=== PATIENT | female | born 1990 | race Caucasian/White ===

== ENCOUNTER 2016-10-30 12:59 | Observation (INO) ==
[2016-10-30] MEDS ORDERED: SODIUM CHLORIDE 0.9% 500 ML IV STA (13:35)
--- NOTE | 2016-10-30 13:55 | CT Report ---
Referring physician: Candido Dewey Exam: CT brain without contrast Date: October 30, 2016 Comparison: None Reason: Syncope The patient is an Emergency Department patient on October 30, 2016. Technique: Axial images of the head were obtained without the use of contrast. Total DLP was 1012.1 mGy*cm. Findings: No hydrocephalus or midline shift is present. There is no evidence of an acute infarction, recent intracranial hemorrhage or abnormal mass effect. The osseous structures appear intact. The mastoid air cells and visualized paranasal sinuses are clear. Impression: No acute intracranial abnormality is identified. The CT exam was performed using one or more of the following dose reduction techniques: Automated exposure control and adjustment of the mA and/or kV according to patient size. PROCEDURE INTERPRETED AT [facility] DEPARTMENT OF RADIOLOGY Final Report Signed by: Dr. Su Santiago
--- NOTE | 2016-10-30 14:02 | XRay Report ---
XR chest 2V Indication: SOB Comparison: None Technique: Frontal and lateral views of the chest. Findings: Heart size appears within normal limits. No focal consolidation, pleural effusion, or pneumothorax. Visualized osseous and surrounding soft tissue structures demonstrate no acute abnormality. Minimal dextroconvex curvature of the thoracic spine. IMPRESSION: No acute cardiopulmonary process demonstrated. PROCEDURE INTERPRETED AT [facility] DEPARTMENT OF RADIOLOGY Final Report Signed by: Dr Patric Sanches
[2016-10-30 14:14] LABS: Basophils % 0.5 % (0.0-0.8); Eosinophils # 0.4 10*3/uL (0.0-0.87); Eosinophils % 7.4 % (0.00-10.9); Hematocrit 37.3 VOL% (35.7-47.0); Hemoglobin 12.9 GM/DL (12.0-16.0); Immature Granulocytes % 0.2 %; Immature Granulocytes Absolute 0.01 #; Lymphocytes # 1.6 10*3/uL (1.4-4.0); Lymphocytes % 28.2 % (21.3-54.2); Mean Corpuscular HGB Conc 34.6 GM/DL (32-36); Mean Corpuscular Hemoglobin 33 PG (27-34); Mean Platelet Volume 9.9 FL (9.6-12.0); Monocytes # 0.2 10*3/uL (0.11-0.8); Monocytes % 4.1 % (1.7-12.7); Neutrophils # 3.3 10*3/uL (1.4-7.4); Neutrophils % 59.6 % (38.7-73.9); Platelet Count 217 T/CUMM (130-400); Red Blood Count 3.97 MC/CUMM (3.8-5.5); Red Cell Distribution Width 12.6 % (9.3-17.3); White Blood Count 5.6 T/CUMM (4-12)
[2016-10-30] MEDS ORDERED: ONDANSETRON 4 MG/2 ML VIAL ONE (14:16)
[2016-10-30] MEDS ORDERED: ONDANSETRON 4 MG/2 ML VIAL IV STA (14:17)
[2016-10-30 14:46] LABS: Apearance,Urine CLEAR (Clear); Bacteria,Urine Occasional /HPF (Few); Bilirubin,Urine Negative (Negative); Blood, Urine Small mg/dL (Negative); Glucose,Urine (UA) Negative (Negative); Ketones,Urine Negative (Negative); Nitrite,Urine Negative (Negative); Protein,Urine Negative; RBC,Urine <1 /HPF (0-4); Squamous Epithelial Cell,Urine Occasional /HPF (0-10); Urine Color Straw (Yellow); Urine Specific Gravity 1.003 (1.001-1.035); Urine Urobilinogen < 2.0 EU/DL (0.2-1.0); WBC,Urine <1 /HPF (0-6)
[2016-10-30 14:55] LABS: Alanine Aminotransferase 87 U/L (13-56); Albumin 3.9 G/DL (3.4-5.0); Alkaline Phosphatase 96 U/L (45-117); Aspartate Amino Transferase 58 U/L (0-37); Blood Urea Nitrogen 6 MG/DL (7-18); Calcium 8.8 MG/DL (8.5-10.1); Glucose 94 MG/DL (74-106); Magnesium 2.4 MG/DL (1.8-2.4); Potassium 4.2 MMOL/L (3.5-5.1); Sodium 143 MMOL/L (136-145); Total Protein 6.6 G/DL (6.4-8.3); Troponin I Only < 0.015 NG/ML (0.00-0.045)
--- NOTE | 2016-10-30 15:16 | Emergency Department Note ---
Maria A Gutierrez Hilary, am scribing for, and in the presence of, Candido Dewey MD 13:37. Maco Gutierrez Phillip K, MD, personally performed the services described in this documentation, ascribed by Pebbles Saha in my presence, and it is both accurate and complete 516 . Arrival - Arrival Chief Complaint: Syncope Stated Complaint: passing out ED Nursing Triage Note: mother states pt passed out 3 times last night. pt has passed out two times today. +headache Mode of Arrival: Wheelchair Limitations: No Limitations Source: Patient, RN Notes Reviewed - History of Present Illness HPI Narrative: Pt is a 26 y/o female presenting to the ED with c/o of syncope which onset last night. Pts states she had 3 episodes of syncope last night and 2 more today. Pt states she has had these same symptoms but not for 6 years. Pt confirms headache on the top of her head bilaterally for 3 days , nausea, lightheadedness , syncope x 5, fever onset 3 days ago, and hoarse voice started 3 days ago but denies knots on her head. Pt has a PMHx of neurocordiogenic vasodepressor syncope. No other complaints or problems stated in the ED. Pts mother is in the room and states 4 days ago, while at work, she lost motor function and her "mind blanked". She said that she was not able to type peoples names or understand what people are saying. Onset (ago): day(s) Date of Last Menstrual Period: iud Allergies/Adverse Reactions: Allergies Allergy/AdvReac Type Severity Reaction Status Date / Time No Known Allergies Allergy Unverified 10/30/16 13:07 Home Medications: Home Medications Medication Instructions Recorded Confirmed Type FLUoxetine [PROzac] 20 mg PO QAM 10/30/16 10/30/16 History Multivitamin [Chewable-Arsenio] 1 each PO DAILY 10/30/16 10/30/16 History Review of System - Review of System 12 point system: reviewed and no additional remarkable complaints except as stated - Review of System Constitutional: Absent: fever Respiratory: Present: cough Cardiovascular: Present: syncope (syncope x 5) Gastrointestinal: Present: nausea. Absent: vomiting Neurological: Present: headache, confusion Medical,Surgical,& Family Hx - Medical History Other: History of: Miscellaneous Medical Problems (neurocordiogenic vasodepressor syncope) - Social History Smoking Status: Smoker, status unknown Frequency of Alcohol Use: None Type of Drug Use: None Exam Vital Signs: Vital Signs Temperature 98.1 F 10/30/16 13:10 Pulse Rate 92 H 10/30/16 13:10 Respiratory Rate 18 10/30/16 13:10 Blood Pressure 124/74 10/30/16 13:10 O2 Sat by Pulse Oximetry 96 10/30/16 13:03 - General General appearance: alert, in no apparent distress - Head Head exam: Present: atraumatic, normocephalic - Eye Eye exam: Present: normal appearance, PERRL, EOMI - ENT ENT exam: Present: mucous membranes moist, TM's normal bilaterally. Absent: mucous membranes dry - Neck Neck exam: Present: full ROM, trachea midline. Absent: tenderness - Chest Chest inspection: Present: symmetric chest wall rise. Absent: tenderness - Respiratory Respiratory exam: Present: normal lung sounds bilaterally. Absent: respiratory distress - Cardiovascular Cardiovascular exam: Present: regular rate, normal rhythm, normal heart sounds. Absent: murmur, rubs, gallop - Abdominal Exam Abdominal exam: Present: soft, normal bowel sounds. Absent: distention, tenderness - Extremities Exam Extremities exam: Present: full ROM. Absent: tenderness - Back Exam Back exam: Present: full ROM. Absent: tenderness - Neurological Exam Neurological exam: Present: alert, oriented X3, CN II-XII intact. Absent: motor sensory deficit - Psychiatric Psychiatric exam: Present: normal affect, normal mood - Skin Skin exam: Present: warm, dry, intact, normal color. Absent: rash Course Course Narrative: Patient discussed with the hospitalist. Results - Labs CBC & BMP: 10/30/16 13:58 10/30/16 13:58 Lab Results: I have reviewed the patients labs Labs: Laboratory Tests 10/30/16 10/30/16 13:58 13:58 Sodium 143 Potassium 4.2 Chloride 107 Carbon Dioxide 28 BUN 6 L AST 58 H ALT 87 H Urine Color Straw Urine Appearance Clear Urine pH 9.0 H Urine Urobilinogen < 2.0 H - EKG EKG results: interpreted by ERMD, WNL, sinus rhythm - Diagnostic Findings Procedure: Chest x-ray: report reviewed by me (No acute abnormality), CT: report reviewed by me (CT head scan shows no acute intracranial abnormality) Disposition Clinical Impression: Syncope Case discussed with: patient, patient's family Disposition: Still a Patient Condition: Guarded Additional Instructions: Admit to the hospitalist for further workup and monitoring.
--- NOTE | 2016-10-30 15:32 | EKG Report ---
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
--- NOTE | 2016-10-30 17:03 | Hospitalist History & Physical ---
Assessment and Plan (1) History of migraine Status: Acute Current Visit: Yes (2) Headache Status: Acute Current Visit: Yes (3) Syncope Status: Acute Assessment and plan: Our plan for this patient will be admitting her to a monitored bed. Will consult neurology. I am going to order an EEG on the patient. Her CT scan was negative. I will defer to neurology if they think an MRI of her brain is needed. She is only on Prozac at home we will continue that medication. I wonder whether this is a stress reaction. Patient has 3 young children and her had a recent heart attack. She had a history of migraines. She does talk about her head hurting with some of the spells. Going to check a 2D echo on this patient just to be complete. Reevaluate patient in the morning and adjust plans appropriate. Current Visit: Yes History of Present Illness Chief complaint: Syncope and headache History of present illness: Ms. Burrell is a 26 year old female with past medical history significant for anxiety and depression who is her normal state of health until this past weekend. Patient reports that she had a "spell". 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 She had a bad headache and she would get kind of dizzy. She says while she was there interesting like her mind went blank. Patient reports that Saturday she developed a hoarse voice but was still able to work. She had the dizziness again. She tried some meclizine it did not change her symptoms. She felt like the top of her head was going to blow off. She checked her blood pressure and glucose and both were normal values. Patient went home and she was found passed out completely out under the garage. Patient was woke up by her she felt weird she did not seek medical attention there was no loss of bowel or bladder function. She passed out 2 more times that evening. She was passing out while in the bed. Last night patient had an additional passing out spell when she got up to go the bathroom. She felt sick she felt dizzy again and passed out. When she woke up she could tell that she had bit her tongue and it she felt like her feet and fingers were numb. Her then called her parents and her parents urged her to come up to the hospital for further evaluation. Patient was seen in the emergency room and I was consulted to admit her Home Medications Medication Instructions Recorded Confirmed Type FLUoxetine [PROzac] 20 mg PO QAM 10/30/16 10/30/16 History Multivitamin [Chewable-Arsenio] 1 each PO DAILY 10/30/16 10/30/16 History Allergies Allergy/AdvReac Type Severity Reaction Status Date / Time No Known Allergies Allergy Unverified 10/30/16 13:07 Medical,Surgical,& Family Hx - Medical History Neurology: History of: Migraine Other: History of: Miscellaneous Medical Problems (neurocordiogenic vasodepressor syncope) - Surgical History HEENT Surgeries: Surgical HX of: Tonsilectomy & Adenoidectomy Reproductive Surgeries: Surgical HX of;: Section - Family History Family History: Reports;: Family Cancer, Family Diabetes, Family Heart Disease - Social History Smoking Status: Light tobacco smoker Frequency of Alcohol Use: None Type of Drug Use: None 12 point system: reviewed and no additional remarkable complaints except as stated Exam - Constitutional Vitals: Period Temp Pulse Resp BP Sys/De Leon Pulse Ox Last 24 Hr 98.1 F-98.1 F 77-92 18-18 124-134/74-86 96 General appearance: normal weight - Head Head exam: Present: normal inspection - Eye Eye exam: Present: EOMI, nystagmus - ENT ENT exam: Present: normal exam - Neck Neck exam: Present: normal inspection - Respiratory Respiratory exam: Present: clear to auscultation bilaterally - Cardiovascular Cardiovascular exam: Present: regular rate and rhythm - GI/Abdominal GI/Abdominal exam: Present: normal bowel sounds - Extremities Exam Extremities exam: Present: normal inspection - Back Exam Back exam: Present: normal inspection - Neurological Exam Neurological exam: Present: alert, oriented X3 - Psychiatric Psychiatric exam: Present: normal affect, normal mood - Skin Skin exam: Present: normal color Results - Labs CBC & BMP: 10/30/16 13:58 10/30/16 13:58
[2016-10-31 06:27] LABS: Basophils % 0.7 % (0.0-0.8); Eosinophils # 0.4 10*3/uL (0.0-0.87); Eosinophils % 7.8 % (0.00-10.9); Hemoglobin 11.6 GM/DL (12.0-16.0); Immature Granulocytes % 0.2 %; Immature Granulocytes Absolute 0.01 #; Lymphocytes # 2.4 10*3/uL (1.4-4.0); Lymphocytes % 44.7 % (21.3-54.2); Mean Corpuscular HGB Conc 33.1 GM/DL (32-36); Mean Corpuscular Hemoglobin 32 PG (27-34); Mean Corpuscular Volume 95.1 FL (87-102); Mean Platelet Volume 10.4 FL (9.6-12.0); Monocytes # 0.3 10*3/uL (0.11-0.8); Monocytes % 5.2 % (1.7-12.7); Neutrophils # 2.2 10*3/uL (1.4-7.4); Neutrophils % 41.4 % (38.7-73.9); Platelet Count 209 T/CUMM (130-400); Red Blood Count 3.68 MC/CUMM (3.8-5.5); Red Cell Distribution Width 12.9 % (9.3-17.3); White Blood Count 5.4 T/CUMM (4-12)
[2016-10-31 07:00] LABS: Albumin 3.3 G/DL (3.4-5.0); Bilirubin,Total 0.4 MG/DL (0.2-1.0); Calcium 8.4 MG/DL (8.5-10.1); Magnesium 2.3 MG/DL (1.8-2.4); Osmolality,Calculated 282.8 MOS/KG (273-304); Potassium 4.4 MMOL/L (3.5-5.1); Total Protein 5.8 G/DL (6.4-8.3)
[2016-10-31] MEDS: FLUoxetine 20 MG CAPSULE PO SCH (08:54)
[2016-10-31] MEDS: PANTOPRAZOLE 40 MG TABLET PO SCH (08:54)
[2016-10-31] MEDS: MULTIVITAMIN (CENTRUM) TABLET PO SCH (08:55)
[2016-10-31] MEDS ORDERED: LORazepam 1 MG TABLET PO ONE (10:12)
[2016-10-31] MEDS: ACETAMINOPHEN 325 MG TABLET PO PRN ×2 (10:21→17:07)
--- NOTE | 2016-10-31 15:48 | Neurology Consult Note ---
History of Present Illness History of present illness: Ms. Burrell is a 26 year RH white lady with past medical history significant for anxiety and depression who was her normal state of health until this past weekend. Patient reports that she had a "spell". 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 She had a bad headache and she would get kind of dizzy. States that her mind went blank. Patient reports that Saturday she developed a hoarse voice but was still able to work. She had the dizziness again. She tried some meclizine it did not change her symptoms. She felt like the top of her head was going to blow off. She checked her blood pressure and glucose and both were normal values. Patient went home and she was found passed out completely out under the garage. Patient was woke up by her she felt weird she did not seek medical attention there was no loss of bowel or bladder function. She passed out 2 more times that evening. She was passing out while in the bed. Last night patient had an additional passing out spell when she got up to go the bathroom. She felt sick she felt dizzy again and passed out. When she woke up she could tell that she had slightly bruised her tongue and she felt like her feet and fingers were numb. Her then called her parents and her parents urged her to come up to the hospital for further evaluation. CT of the head is negative. Patient has been under a lot of stress lately at home as well as at work. Home Medications Medication Instructions Recorded Confirmed Type FLUoxetine [PROzac] 20 mg PO QAM 10/30/16 10/30/16 History Multivitamin [Chewable-Arsenio] 1 each PO DAILY 10/30/16 10/30/16 History Allergies Allergy/AdvReac Type Severity Reaction Status Date / Time No Known Allergies Allergy Unverified 10/30/16 13:07 12 point system: reviewed and no additional remarkable complaints except as stated Medical,Surgical,& Family Hx - Medical History Psychological: History of: Anxiety Disorders Neurology: History of: Migraine Other: History of: Miscellaneous Medical Problems (neurocordiogenic vasodepressor syncope) - Surgical History Neurologic Surgeries: Patient denies: Neurologic Surgery HEENT Surgeries: Surgical HX of: Tonsilectomy & Adenoidectomy Reproductive Surgeries: Surgical HX of;: Section - Family History Family History: Reports;: Family Cancer, Family Diabetes, Family Heart Disease - Social History Smoking Status: Light tobacco smoker Frequency of Alcohol Use: None Type of Drug Use: None Exam - Constitutional Vitals: Period Temp Pulse Resp BP Sys/De Leon Pulse Ox Last 24 Hr 97.1 F-98.8 F 59-80 16-20 97-120/56-67 93-96 Exam: GENERAL: Patient is in no acute distress. NECK: Neck is supple. There is no JVD. No carotid bruits present. No thyroid masses. CVS: First and second heart sounds are normal. There is no S3 present. Regular rate and rhythm. RESPIRATORY: Lungs are clear to auscultation without any rales or rhonchi. ABDOMEN: Soft and non-tender. Bowel sounds are present. There is no hepatosplenomegaly. EXT: There is no palpable edema. Peripheral pulses are present. Skin: No rashes Central Nervous system: General: Alert, awake and Oriented x 3 Speech: Fluent Comprehension: Intact and normal Facial expressions: Normal Cranial Nerves: CN1/Olfactory: Normal CN II/ Optic: Normal, Visual Cantu unreliable CN III, and : GABY & EOMI CN V: Normal & intact CN VII: face is symmetric CNVIII: Normal CN XI/X/XI/XII: Intact and Normal Motor: Bulk and Tone is normal. Strength in the right 5/5 Strength in the left 5/5 Sensory: Grossly intact for all the modalities of PP, LT and temp sense Reflexes: 1+ and symmetrical Cerebellar function: Normal finger to nose and heel to brown testing. Toes: Equivocal Gait: Normal heel to heel and toe to toe and tandem walk. Results - Labs CBC & BMP: 10/31/16 05:21 10/31/16 05:21 Assessment and Plan (1) Chronic migraine Status: Acute Assessment and plan: Topamax 25 mg p.o. daily Fioricet 1 tablet every 4 to every 6 as needed Current Visit: Yes (2) Syncope Status: Acute Assessment and plan: MRI of the brain with and without contrast EEG Thank you for the count Current Visit: Yes
--- NOTE | 2016-10-31 16:18 | Hospitalist Progress Note ---
Assessment and Plan (1) History of migraine Status: Chronic Assessment and plan: Noted patient is a started on Topamax and Fioricet Current Visit: Yes (2) Syncope Status: Acute Assessment and plan: Syncope of 4 unknown etiology. Being evaluated by neurology. I cannot rule out any seizure or this could be a migraine related . EEG for performed today result pending MRI of the brain with and without contrast planned by Dr. West Current Visit: Yes (3) Anxiety Status: Acute Current Visit: Yes Hospitalist: Subjective Interval history: Ms. Burrell is a 26 year old female with past medical history significant for anxiety and depression. 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 She reports that she having spells for last few days. Over the weekend on Saturday she will get the pharmacy and felt funny. She gave the patient empty bottle at the pharmacy store with no label. Earlier she could not even type patient's name on the computer and order fill prescription. Patient started having headache next day with some nausea. Saturday morning she passed out in her garage and the felt lightheaded she does not remember what happened. Y numbness in her hands and feet and felt her head heavy and dizzy morning she had another episode when she felt while she using bathroom. She had no bowel incontinence or tongue biting . She was seen in the ER and had CT scan which was negative for acute intracranial abnormalities she was admitted for further evaluation. She had episode of anxiety attack here in the hospital this morning she was given a milligram of 1 mg of Ativan. She says she does have a history of anxiety and very occasionally she has to take Ativan she has not taken this for some weeks now before today. She has no history of seizure but her mother told that she had history of what was told is near syncope when she was at age 6. Exam - Constitutional Vitals: Period Temp Pulse Resp BP Sys/De Leon Pulse Ox Last 24 Hr 97.1 F-98.8 F 59-80 16-20 97-120/56-67 93-96 General appearance: no acute distress, over weight - Eye Eye exam: Present: EOMI. Absent: conjunctival injection Pupils: Present: GABY, normal accommodation - Respiratory Respiratory exam: Present: clear to auscultation bilaterally. Absent: rales, rhonchi - Cardiovascular Cardiovascular exam: Present: regular rate and rhythm. Absent: tachycardia - GI/Abdominal GI/Abdominal exam: Present: normal bowel sounds, soft. Absent: distended, tenderness - Extremities Exam Extremities exam: Present: normal inspection. Absent: edema - Neurological Exam Neurological exam: Present: alert, oriented X3 Results - Labs CBC & BMP: 10/31/16 05:21 10/31/16 05:21 Lab Results: I have reviewed the past 24 hour labs
--- NOTE | 2016-10-31 19:32 | ECHO Report ---
Ade Burrell Exam Date: 10/31/2016 10:47 Referring Physician: Technologist: Nancy Maciel Age: 26 Ht (in): 63 Wt (lb): 149 Gender: F Exam [facility]: [facility] Echo Indications: Syncope and collapse, Migraine BP: 105 / 56 HR: 66 Rhythm: Sinus Technical Quality: IMPRESSIONS Normal left ventricular size, without hypertrophy, normal systolic function. Estimated left ventricular ejection fraction 60%. Normal diastolic function. No significant valvular abnormalities. MEASUREMENTS (Male / Female) Normal Values 2D ECHO LV Diastolic Diameter PLAX 4.0 cm 4.2 - 5.9 / 3.9 - 5.3 cm LV Systolic Diameter PLAX 2.7 cm LV Fractional Shortening PLAX 31.9 % IVS Diastolic Thickness 0.9 cm 0.6 - 1.0 / 0.6 - 0.9 cm LVPW Diastolic Thickness 1.3 cm 0.6 - 1.0 / 0.6 - 0.9 cm RV Internal Dim ED PLAX 3.3 cm Aortic Root Diameter 3.0 cm LA Systolic Diameter LX 3.4 cm 3.0 - 4.0 / 2.7 - 3.8 cm DOPPLER TR Peak Velocity 219.0 cm/s TR Peak Gradient 19.2 mmHg FINDINGS Left Ventricle Normal left ventricular size, without hypertrophy, normal systolic function. Estimated left ventricular ejection fraction 60%. Normal diastolic function. Right Ventricle The right ventricle is normal in size and function. Right Atrium The right atrium is normal in size. Left Atrium The left atrium is normal in size. Mitral Valve Morphologically normal mitral valve without significant stenosis or prolapse. There is no mitral regurgitation. Aortic Valve Morphologically normal aortic valve without significant sclerosis or stenosis. There is no aortic regurgitation. Tricuspid Valve Morphologically normal tricuspid valve. Trace to mild tricuspid valve regurgitation. Tricuspid regurgitation velocities suggest a PAP of 29 mmHg. Pulmonic Valve Morphologically normal pulmonic valve without significant stenosis. There is no pulmonic regurgitation. Pericardium Normal pericardium without effusion. Aorta Normal ascending aorta dimension. Rubén Lemos (Electronically Signed) Final Date: 31 Oct 2016 19:31
[2016-10-31] MEDS: TOPIRAMATE 25 MG TABLET PO SCH (21:05)
[2016-10-31] MEDS: LORazepam 1 MG TABLET PO PRN (21:09)
[2016-11-01 06:47] LABS: Basophils % 0.6 % (0.0-0.8); Eosinophils # 0.4 10*3/uL (0.0-0.87); Eosinophils % 5.6 % (0.00-10.9); Hematocrit 38.8 VOL% (35.7-47.0); Hemoglobin 13.4 GM/DL (12.0-16.0); Immature Granulocytes Absolute 0.07 #; Lymphocytes # 2.2 10*3/uL (1.4-4.0); Lymphocytes % 31.2 % (21.3-54.2); Mean Corpuscular HGB Conc 34.5 GM/DL (32-36); Mean Corpuscular Hemoglobin 33 PG (27-34); Mean Corpuscular Volume 94.4 FL (87-102); Mean Platelet Volume 10.3 FL (9.6-12.0); Monocytes # 0.4 10*3/uL (0.11-0.8); Monocytes % 5.6 % (1.7-12.7); Neutrophils # 3.9 10*3/uL (1.4-7.4); Platelet Count 228 T/CUMM (130-400); Red Blood Count 4.11 MC/CUMM (3.8-5.5); Red Cell Distribution Width 12.8 % (9.3-17.3)
[2016-11-01] MEDS: ACETAMINOPHEN 325 MG TABLET PO PRN (07:51)
[2016-11-01] MEDS: LORazepam 1 MG TABLET PO PRN (07:52)
[2016-11-01] MEDS: MULTIVITAMIN (CENTRUM) TABLET PO SCH (10:25)
[2016-11-01] MEDS: FLUoxetine 20 MG CAPSULE PO SCH (10:26)
[2016-11-01] MEDS: PANTOPRAZOLE 40 MG TABLET PO SCH (10:26)
[2016-11-01] MEDS: ONDANSETRON 4 MG/2 ML VIAL IV PRN (11:20)
--- NOTE | 2016-11-01 12:16 | Hospitalist Progress Note ---
Assessment and Plan (1) History of migraine Status: Chronic Assessment and plan: patient is a started on Topamax and Fioricet per Dr. West Current Visit: Yes (2) Syncope Status: Acute Assessment and plan: Blood pressure in low 100s no tachycardia. I will check the orthostatic vital signs. Patient has reported her suffered a heart attack and they started healthy diet and she lost weight intentionally but not taking any medications to assist with that . Also being worked but by Dr. West awaiting MRI Current Visit: Yes (3) Anxiety Status: Acute Assessment and plan: On Ativan as needed Current Visit: Yes Hospitalist: Subjective Interval history: Patient reported to have some dizziness/lightheadedness and headache last night but did not pass out. Afebrile eating breakfast in the waiting to go for MRI. Exam - Constitutional Vitals: Period Temp Pulse Resp BP Sys/De Leon Pulse Ox Last 24 Hr 96.3 F-98.9 F 69-80 18-20 103-113/58-71 94-98 General appearance: no acute distress, over weight - Respiratory Respiratory exam: Present: clear to auscultation bilaterally. Absent: rales, rhonchi - Cardiovascular Cardiovascular exam: Present: regular rate and rhythm. Absent: tachycardia - GI/Abdominal GI/Abdominal exam: Present: normal bowel sounds, soft. Absent: distended, tenderness - Extremities Exam Extremities exam: Present: normal inspection. Absent: edema - Neurological Exam Neurological exam: Present: alert, oriented X3 Results - Labs CBC & BMP: 11/01/16 04:00 10/31/16 05:21 Lab Results: I have reviewed the past 24 hour labs
--- NOTE | 2016-11-01 12:19 | Neurology Progress Note ---
Neurology - PN : Subjective Interval history: No more spells reported. EEG is within normal limits. Seems to be doing okay. Tolerating Topamax okay Exam (Progress Note) - Constitutional Vitals: Period Temp Pulse Resp BP Sys/De Leon Pulse Ox Last 24 Hr 96.3 F-98.9 F 62-80 18-20 103-113/55-71 94-98 Exam: GENERAL: Patient is in no acute distress. NECK: Neck is supple. There is no JVD. No carotid bruits present. No thyroid masses. CVS: First and second heart sounds are normal. There is no S3 present. Regular rate and rhythm. RESPIRATORY: Lungs are clear to auscultation without any rales or rhonchi. ABDOMEN: Soft and non-tender. Bowel sounds are present. There is no hepatosplenomegaly. EXT: There is no palpable edema. Peripheral pulses are present. Skin: No rashes Central Nervous system: General: Alert, awake and Oriented x 3 Speech: Fluent Comprehension: Intact and normal Facial expressions: Normal Cranial Nerves: CN1/Olfactory: Normal CN II/ Optic: Normal, Visual Cantu unreliable CN III, and : GABY & EOMI CN V: Normal & intact CN VII: face is symmetric CNVIII: Normal CN XI/X/XI/XII: Intact and Normal Motor: Bulk and Tone is normal. Strength in the right 5/5 Strength in the left 5/5 Sensory: Grossly intact for all the modalities of PP, LT and temp sense Reflexes: 1+ and symmetrical Cerebellar function: Normal finger to nose and heel to brown testing. Toes: Equivocal Gait: Normal heel to heel and toe to toe and tandem walk. Results - Labs CBC & BMP: 11/01/16 04:00 10/31/16 05:21 Assessment and Plan (1) Chronic migraine Status: Acute Assessment and plan: Topamax 25 mg p.o. daily Fioricet 1 tablet every 4 to every 6 as needed Current Visit: Yes (2) Syncope Status: Acute Assessment and plan: For MRI today Current Visit: Yes
--- NOTE | 2016-11-01 14:05 | Magnetic Resonance Report ---
History: Syncope Date: 11/01/2016 Study: MRI brain with and without IV contrast Comparison exam: No previous The brain was imaged in 3 planes on the 1.5 Christina magnet with and without 13 ml Dotarem IV contrast , to include diffusion, T2, FLAIR, and pre-and postcontrast T1-weighted sequences. The ventricles are midline in position without evidence of hydrocephalus. There is no Chiari I malformation. There is no gross pituitary mass. There is no evidence of acute ischemia on the diffusion sequence. There is no parenchymal hemorrhage. There is no area of abnormal enhancing mass effect. There is no extra-axial hematoma. There is normal flow void in the superior sagittal sinus. There is no gross flow abnormality in the wiyot of Yee region. There is no obvious cerebellopontine angle mass. Impression: Normal MRI brain as discussed above PROCEDURE INTERPRETED AT [facility] DEPARTMENT OF RADIOLOGY Final Report Signed by: Dr. Kelli Martinez
[2016-11-01] MEDS: TOPIRAMATE 25 MG TABLET PO SCH (22:17)
[2016-11-02] MEDS: ONDANSETRON 4 MG/2 ML VIAL IV PRN (00:01)
[2016-11-02 05:33] VITALS: BP 110/62
[2016-11-02] MEDS: FLUoxetine 20 MG CAPSULE PO SCH (09:31)
[2016-11-02] MEDS: MULTIVITAMIN (CENTRUM) TABLET PO SCH (09:31)
[2016-11-02] MEDS: PANTOPRAZOLE 40 MG TABLET PO SCH (09:32)
--- NOTE | 2016-11-02 14:40 | Discharge Summary ---
Hospital Course - Hospital Course Hospital Course: Ms. Burrell is a 26 year old female with past medical history significant for anxiety and depression. She has no history of seizure disorder but mother told me that she had near syncope at a 6. She works at the [employer] and recently she had been under a lot of stress at home and did not work. She also has history of migraine but had not been bothering her recently. She takes Ativan as needed for anxiety but has not been taking recently she does take Prozac for depression. She was admitted on 10/31/2013 from ER. She presented because last weekend on Saturday she was working at [employer] and her mind went blank and she felt funny. She had an empty bottle to LAD with no labile. Usually she is very particular about her work. Next day she started having headache with some nausea. She also had hoarseness of voice over the weekend. She was dizzy she had checking her blood pressure at the pharmacy and home and they were okay. She also check her blood sugar which was within normal range. Saturday morning she passed out and felt lightheadedness but she could not recall that. She had 2 more spell like this year in the evening she had another attack like this day before admission when she passed out when she was in the bathroom she felt like her head was heavy. And passed out without any incontinence. She had a CT scan head in the ER and did not show any intracranial abnormalities. Next morning she had an anxiety attack in the hospital for which she required dose of Ativan she uses Ativan very very rarely and it has been weeks before she required this dose in the hospital. Patient was seen by Dr. West underwent EEG and MRI of the brain and were negative for any significant abnormalities. Patient was placed on Topamax and Fioricet. She had been asymptomatic last 2 days and feeling fine. I spoke to Dr. Pakand he plan to see him on clinic in 4 weeks and continue Topamax as prescribed. I will discharge her and asked to follow-up as planned. She had mentioned that she did not have any menstrua cycle for a while. She has [employer] doctor and she was plan to see him since she has to get the intrauterine device is out. I encouraged to see her [employer] primary care physician and the Dr. West for current issue Diagnosis - Discharge Diagnosis (1) History of migraine Status: Chronic (2) Syncope Status: Acute (3) Anxiety Status: Acute (4) Headache Status: Acute Discharge Plan - Discharge Data Disposition: Disch To Home/Self Care Condition at Discharge: Stable Discharge Diet: advance to your usual diet Activity: resume usual activities as tolerated - Discharge Medications New LORazepam TAB [Ativan Tab] 1 mg PO TID PRN tablet PRN Reason: Anxiety Butalb/Acetaminophen/Caffeine [Fioricet 50-300-40 mg Capsule] 1 each PO TID # 20 capsule Topiramate [Topamax] 25 mg PO BEDTIME tablet Continue FLUoxetine [PROzac] 20 mg PO QAM Multivitamin [Chewable-Arsenio] 1 each PO DAILY - Follow Up or Referral - Forms/Instructions Exam - Constitutional Vitals: Period Temp Pulse Resp BP Sys/De Leon Pulse Ox Last 24 Hr 97.4 F-98.3 F 65-88 16-20 106-120/60-82 94-98 General appearance: no acute distress - Head Head exam: Present: normal inspection, normocephalic - Eye Eye exam: Present: EOMI Pupils: Present: GABY - Respiratory Respiratory exam: Present: clear to auscultation bilaterally. Absent: rales, rhonchi - Cardiovascular Cardiovascular exam: Present: regular rate and rhythm. Absent: tachycardia - GI/Abdominal GI/Abdominal exam: Present: normal bowel sounds, soft. Absent: tenderness - Neurological Exam Neurological exam: Present: alert, oriented X3. Absent: motor sensory deficit ( No gross sensory or motor deficit) DS: Provider Date of admission: 10/30/16 16:58 Primary care physician: . No PCP Attending physician on admission: Sreedhar Elizabeth MD Consults: 10/30/16 16:48 Consult to Physician [CONS] Routine Comment: syncope and head aches Consulting Provider: Noah West Consulting Provider Notified: Yes When should Consulting Provider be notified: Now Consult to Specialist Group: Neurology When should Consulting Provider be notified: Now Person Notified: JUAN MIGUEL Date Notified: 10/31/16 Time Notified: 08:53 Discharging clinician: Gab Durant MD
--- NOTE | 2016-11-03 07:38 | Electroencephalogram ---
HISTORY: A 26-year old female patient with a history of questionable seizures. INTRODUCTION: A digital EEG was performed using the standard 10/20 system of electrode placement wit h one channel of EKG monitoring. Photic stimulation is performed. DESCRIPTION OF RECORD: The background is very well organized consists of 8.5-9 hertz moderate amplit ude bilaterally symmetrical alpha rhythm predominantly in the posterior head region, which attenuates with eye opening. Photic stimulation elicits driving response at all flash frequencies. Hyperventi lation produced no abnormalities. Drowsiness and sleep is not achieved. There are no focal, sharp w ave, spike or wave activity seen. Heart rate is 60 beats per minute. IMPRESSION: NORMAL EEG DURING WAKEFULNESS. CLINICAL CORRELATION: No focal nor epileptiform features are seen. Normal EEG does not rule out the diagnostic possibility of epilepsy. Clinical correlation is suggested.
== END 2016-11-02 15:50 | disposition home or self-care (01) ==
LOC: N.ED 12:59 → N.EDINP 12:59 → SUATTDRO 16:58 → N.4E 17:22
PROVIDERS: ADMIT Internal Medicine; ATTEND Internal Medicine

== ENCOUNTER 2018-12-04 05:35 | Inpatient (IN) ==
[2018-12-04] MEDS ORDERED: ONDANSETRON 4 MG/2 ML VIAL IV PRN ×2 (05:46→08:28)
[2018-12-04] MEDS ORDERED: LACTATED RINGERS 1,000 ML IV ONE (05:47)
[2018-12-04] MEDS ORDERED: FAMOTIDINE 20 MG/2 ML VIAL IV ONE (05:47)
[2018-12-04] MEDS ORDERED: CITRIC ACID/SODIUM CITRATE 30 ML UDCUP PO ONE (05:47)
[2018-12-04] MEDS ORDERED: ceFAZolin 2,000 MG in PREMIX 1 EACH IV ONE (06:01)
[2018-12-04 06:06] LABS: Basophils # 0.1 10*3/uL (0.0-0.2); Basophils % 0.4 % (0.0-0.8); Eosinophils # 0.1 10*3/uL (0.0-0.87); Hematocrit 33.8 VOL% (35.7-47.0); Hemoglobin 11.1 GM/DL (12.0-16.0); Immature Granulocytes % 0.9 %; Lymphocytes # 3.9 10*3/uL (1.4-4.0); Lymphocytes % 34.5 % (21.3-54.2); Mean Corpuscular HGB Conc 32.8 GM/DL (32-36); Mean Corpuscular Volume 102.4 FL (87-102); Mean Platelet Volume 11.3 FL (9.6-12.0); Monocytes % 6.7 % (1.7-12.7); Neutrophils % 56.5 % (38.7-73.9); Platelet Count 300 T/CUMM (130-400); White Blood Count 11.2 T/CUMM (4-12)
[2018-12-04] MEDS: LACTATED RINGERS 1,000 ML IV SCH ×2 (06:36→17:05)
[2018-12-04 06:37] LABS: Albumin 3.2 G/DL (3.4-5.0); Bilirubin,Total 0.4 MG/DL (0.2-1.0); Osmolality,Calculated 269.8 MOS/KG (273-304); Total Protein 6.9 G/DL (6.4-8.3)
[2018-12-04] MEDS ORDERED: OXYTOCIN/LR 20 UNIT/1,000 ML BAG IV ONE ×3 (07:03→08:28)
[2018-12-04] MEDS ORDERED: PHENYLEPHRINE 1 MG/10 ML SYRINGE IV ONE ×3 (07:05→10:47)
[2018-12-04] MEDS ORDERED: DEXAMETHASONE 4 MG/1 ML VIAL ONE (07:06)
[2018-12-04] MEDS ORDERED: BUPIVACAINE 0.5% 50 ML VIAL ONE (07:06)
[2018-12-04] MEDS ORDERED: BUPIVACAINE SPINAL 0.75% 2 ML AMP SPINAL ONE (07:06)
[2018-12-04] MEDS ORDERED: EPINEPHrine 1 MG/ML VIAL ONE (07:06)
[2018-12-04] MEDS ORDERED: MORPHINE 10 MG/10 ML VIAL ONE (07:07)
[2018-12-04] MEDS ORDERED: MEASLES/MUMPS/RUBELLA VACCINE 0.5 ML VIAL SUBCUT ONE (08:28)
[2018-12-04] MEDS ORDERED: RHO(D) IMMUNE GLOBULIN 300 MCG SYRINGE IM ONE (08:28)
[2018-12-04] MEDS ORDERED: BENZOCAINE 20%/MENTHOL 0.5% SPRAY 56 GM CAN TOP PRN (08:28)
[2018-12-04] MEDS ORDERED: HYDROCORTISONE 2.5% RECTAL CREAM 30 GM TUBE TOP PRN (08:28)
[2018-12-04] MEDS ORDERED: LANOLIN 50% CREAM 0.3 OZ TUBE TOP PRN (08:28)
[2018-12-04] MEDS ORDERED: ACETAMINOPHEN 325 MG TABLET PO PRN (08:28)
[2018-12-04] MEDS ORDERED: WITCH HAZEL PADS 100/JAR TOP PRN (08:28)
[2018-12-04] MEDS ORDERED: BISACODYL 10 MG SUPP RECTAL PRN (08:28)
[2018-12-04] MEDS ORDERED: DIPH/TET/ACEL PERT BOOSTER VACCINE 0.5 ML VIAL IM ONE (08:28)
[2018-12-04 08:31] LABS: Apearance,Urine CLEAR (Clear); Bacteria,Urine Occasional /HPF (Few); Bilirubin,Urine Negative (Negative); Blood, Urine Negative (Negative); Glucose,Urine (UA) Negative (Negative); Ketones,Urine Negative (Negative); Nitrite,Urine Negative (Negative); Protein,Urine Negative; RBC,Urine <1 /HPF (0-4); Squamous Epithelial Cell,Urine Occasional /HPF (0-10); Urine Color Colorless (Yellow); Urine Specific Gravity 1.002 (1.001-1.035); Urine Urobilinogen < 2.0 EU/DL (0.2-1.0)
[2018-12-04] MEDS ORDERED: ACETAMINOPHEN 500 MG TABLET PO PRN (09:21)
[2018-12-04] MEDS: KETOROLAC 30 MG/1 ML VIAL IV SCH ×3 (09:30→21:10)
[2018-12-04] MEDS ORDERED: ePHEDrine 50 MG/ML AMP ONE (10:47)
[2018-12-04] MEDS: ceFAZolin 1,000 MG in SYRINGE 1 EACH IV SCH ×2 (15:40→23:47)
[2018-12-04] MEDS: DOCUSATE SODIUM 100 MG CAPSULE PO SCH ×2 (19:08→21:11)
[2018-12-05] MEDS: LACTATED RINGERS 1,000 ML IV SCH (00:51)
[2018-12-05] MEDS: KETOROLAC 30 MG/1 ML VIAL IV SCH (03:03)
[2018-12-05 04:44] LABS: Basophils % 0.2 % (0.0-0.8); Eosinophils # 0.1 10*3/uL (0.0-0.87); Eosinophils % 0.4 % (0.00-10.9); Immature Granulocytes % 0.7 %; Immature Granulocytes Absolute 0.12 #; Lymphocytes % 22.5 % (21.3-54.2); Mean Corpuscular HGB Conc 33.3 GM/DL (32-36); Mean Corpuscular Volume 102.7 FL (87-102); Mean Platelet Volume 11.8 FL (9.6-12.0); Monocytes % 7.9 % (1.7-12.7); Neutrophils % 68.3 % (38.7-73.9); Platelet Count 239 T/CUMM (130-400); Red Blood Count 2.63 MC/CUMM (3.8-5.5); Red Cell Distribution Width 11.9 % (9.3-17.3)
[2018-12-05] MEDS: oxyCODONE/ACETAMINOPHEN 5-325 MG TABLET PO PRN ×4 (05:47→23:56)
[2018-12-05] MEDS: DOCUSATE SODIUM 100 MG CAPSULE PO SCH ×3 (08:45→21:58)
[2018-12-05] MEDS: IBUPROFEN 800 MG TABLET PO PRN ×2 (12:57→19:42)
[2018-12-05] MEDS ORDERED: SIMETHICONE CHEW 80 MG TABLET PO PRN (19:08)
[2018-12-05] MEDS: MAGNESIUM HYDROXIDE SUSP 30 ML UDCUP PO PRN (19:42)
[2018-12-05] MEDS ORDERED: ALUMINUM/MAGNES/SIMETH MAX STR 30 ML UDCUP PO PRN (22:30)
[2018-12-06] MEDS: IBUPROFEN 800 MG TABLET PO PRN (04:27)
[2018-12-06 08:14] VITALS: BP 99/53
[2018-12-06] MEDS: MAGNESIUM HYDROXIDE SUSP 30 ML UDCUP PO PRN (08:50)
[2018-12-06] MEDS: DOCUSATE SODIUM 100 MG CAPSULE PO SCH (08:50)
== END 2018-12-06 12:25 | disposition home or self-care (01) | DRG 788 ==
LOC: N.LD 05:35 → N.OB 11:59
PROVIDERS: ADMIT Specialist; ATTEND Specialist
PROC: LDCSECT (ICD-10-PCS; 2018-12-04 08:45)